=== PATIENT | male | born 1980 | race Two or more races ===

== ENCOUNTER 2022-02-22 15:38 | Emergency (ER) | payer SELFPAY ==
[~2022-02-22] VITALS: Ht 167.6 cm; Wt 77.0 kg
[2022-02-22 16:45] VITALS: BP 117/79
[2022-02-22] MEDS ORDERED: ACETAMINOPHEN 325MG TABLET PO ONE (16:45)
[2022-02-22] MEDS ORDERED: IBUPROFEN 400MG TABLET PO ONE (16:45)
[2022-02-22] MEDS ORDERED: IBUP-2028 MT (17:23)
== END 2022-02-22 18:04 | disposition home or self-care (01) ==
LOC: ER 15:38
DX: M25.512 Pain in left shoulder (principal); V99.XXXA Unspecified transport accident, initial encounter; Y93.89 Activity, other specified; Y92.89 Other specified places as the place of occurrence of the external cause; Y99.8 Other external cause status
CPT/HCPCS: 73030; 73562; 73590; 99284